=== PATIENT | female | born 1965 | race Caucasian/White ===

== ENCOUNTER → 2016-11-09 11:30 | Outpatient (CLI) | payer OTHER ==
[2014-06-26 09:57] VITALS: BMI 28.2
[~2016-11-09 11:30] MED LIST: ACETAMINOPHEN500 M1 PO; BAYER CHEWABLE81 MG PO; BUTALB-APAP-CA1 EACH PO; FISH OIL 1,0001 CA1 PO; NORVASC10 MG PO; PROBIOTIC PO; SUPER B COMPLE150 MG PO; ZOFRAN ODT4 MG/UDTAB PO
== END | disposition home or self-care (01) ==
LOC: D.CT 11:30
DX: R10.84 Generalized abdominal pain (principal)

== ENCOUNTER → 2017-05-08 08:58 | Outpatient (CLI) | payer OTHER | END | disposition home or self-care (01) | LOC: D.US 08:58 | DX: K76.0 Fatty (change of) liver, not elsewhere classified (principal) ==

== ENCOUNTER → 2017-10-23 08:41 | Outpatient (CLI) | payer OTHER ==
[2014-06-26 09:57] VITALS: BMI 28.2
[2017-10-23 10:38] LABS: ALBUMIN 3.9 g/dL (3.4-5.0); BILIRUBIN - DIRECT 0.04 mg/dL (0.00-0.30); BILIRUBIN - INDIRECT 0.33 mg/dL (0.00-1.00); BILIRUBIN - TOTAL 0.37 mg/dL (0.2-1.3); PROTEIN - SERUM 7.5 g/dL (6.4-8.2)
== END | disposition home or self-care (01) ==
LOC: D.US 08:41
PROVIDERS: Internal Medicine Gastroenterology
DX: K76.0 Fatty (change of) liver, not elsewhere classified (principal)

== ENCOUNTER → 2018-05-01 08:45 | Outpatient (CLI) | payer OTHER ==
[2014-06-26 09:57] VITALS: BMI 28.2
[2018-05-01 09:44] LABS: ALBUMIN 3.6 g/dL (3.4-5.0); BILIRUBIN - DIRECT 0.07 mg/dL (0.00-0.30); BILIRUBIN - INDIRECT 0.23 mg/dL (0.00-1.00); BILIRUBIN - TOTAL 0.3 mg/dL (0.2-1.3); PROTEIN - SERUM 6.8 g/dL (6.4-8.2)
== END | disposition home or self-care (01) ==
LOC: D.US 04-25 09:00
PROVIDERS: Internal Medicine Gastroenterology
DX: K76.0 Fatty (change of) liver, not elsewhere classified (principal)

== ENCOUNTER → 2018-11-02 07:25 | Outpatient (CLI) | payer OTHER ==
[2014-06-26 09:57] VITALS: BMI 28.2
[2018-11-02 08:28] LABS: BILIRUBIN - DIRECT 0.09 mg/dL (0.00-0.30); BILIRUBIN - INDIRECT 0.28 mg/dL (0.00-1.00); BILIRUBIN - TOTAL 0.37 mg/dL (0.2-1.3); PROTEIN - SERUM 7.3 g/dL (6.4-8.2)
== END | disposition home or self-care (01) ==
LOC: D.US 10-31 09:00
PROVIDERS: ATTEND Internal Medicine Gastroenterology
DX: K76.0 Fatty (change of) liver, not elsewhere classified (principal)

== ENCOUNTER 2018-12-09 12:14 | Emergency (ER) | payer OTHER ==
[~2018-12-09] VITALS: Ht 162.6 cm; Wt 79.1 kg
[2018-12-09 12:19] VITALS: Ht 162.6 cm; Wt 79.1 kg
[2018-12-09] MEDS ORDERED: PROMETRIUM100 MG PO (12:22)
[2018-12-09] MEDS ORDERED: CLIMARA 0.0.05 MG/PA TRANSDERM (12:22)
[2018-12-09] MEDS ORDERED: PRINIVIL10 MG PO (12:22)
[2018-12-09] MEDS ORDERED: CATAPRES0.1 MG PO (12:23)
[2018-12-09 12:38] LABS: BASOPHILS 0.5 % (0-2); EOSINOPHILS 1.7 % (0-7); HEMATOCRIT 41.8 % (36.0-48.0); HEMOGLOBIN 14.5 g/dL (12-16); IMMATURE GRANULOCYTES 0.3 % (0-5); LYMPHOCYTES 38.1 % (15-50); MCH 30.9 pg (26.0-34.0); MCHC 34.7 g/dL (31.0-37.0); MCV 88.9 fL (80.0-100.0); MEAN PLATELET VOLUME 10.1 fL (7.4-10.4); MONOCYTES 6.3 % (2-11); NEUTROPHILS 53.1 % (40-80); RDW 12.7 % (11.5-14.5)
[2018-12-09 12:43] LABS: PLATELET COUNT 179 10x3/uL (130-400)
[2018-12-09 12:51] LABS: INR 1.02 (0.85-1.17); PROTIME 12.9 SECONDS (11.6-15.0)
[2018-12-09 12:52] LABS: APTT 27.9 SECONDS (22.8-39.4)
[2018-12-09 12:58] LABS: ALBUMIN 3.8 g/dL (3.4-5.0); ALKALINE PHOSPHATASE 54 U/L (46-116); ALT (SGPT) 24 U/L (10-68); BILIRUBIN - TOTAL 0.44 mg/dL (0.2-1.3); CALC OSMOLALITY 276 mosm/kg (275-300); CALCIUM 9.7 mg/dL (8.5-10.1); CARBON DIOXIDE 25.9 mmol/L (21.0-32.0); CHLORIDE - SERUM 105 mmol/L (98-107); CREATININE - SERUM 0.7 mg/dL (0.6-1.3); GLUCOSE 91 mg/dL (74-106); POTASSIUM - SERUM 3.9 mmol/L (3.5-5.1); PROTEIN - SERUM 7.2 g/dL (6.4-8.2); SODIUM 139 mmol/L (136-145); UREA NITROGEN 10 mg/dL (7-18); eGFR NON AFRICAN AMERICAN > 90 mL/min (90-120)
[2018-12-09 13:11] LABS: CKMB 0.8 U/L (0.0-3.6); CREATINE KINASE 99 UL (21-215); MAGNESIUM - SERUM 2.1 mg/dL (1.8-2.4)
[2018-12-09 13:12] LABS: TROPONIN-I < 0.017 ng/mL (0.000-0.060)
[2018-12-09 16:07] VITALS: BP 126/64
== END 2018-12-09 16:08 | disposition home or self-care (01) ==
LOC: D.ER 12:14
PROVIDERS: Family Medicine
DX: R07.9 Chest pain, unspecified (principal); I10 Essential (primary) hypertension

== ENCOUNTER 2019-04-10 20:25 | Emergency (ER) | payer OTHER ==
[~2019-04-10] VITALS: Ht 162.6 cm; Wt 70.9 kg
[~2019-04-10 20:25] MED LIST changes: +CATAPRES0.1 MG PO; +CLIMARA 0.0.05 MG/PA TRANSDERM; +PRINIVIL10 MG PO; +PROMETRIUM100 MG PO
[2019-04-10 20:39] VITALS: Ht 162.6 cm; Wt 70.9 kg
[2019-04-10 21:20] LABS: APPEARANCE CLEAR (CLEAR); BILIRUBIN NEGATIVE (NEGATIVE); COLOR YELLOW (YELLOW); GLUCOSE NEGATIVE (NEGATIVE); KETONE NEGATIVE (NEGATIVE); NITRITE NEGATIVE (NEGATIVE); PROTEIN NEGATIVE (NEGATIVE); UROBILINOGEN NORMAL (NORMAL)
[2019-04-10 21:21] LABS: BACTERIA FEW /hpf (NONE SEEN); RED CELLS - URINE OCC /hpf (0-5); WHITE CELLS - URINE OCC /hpf (0-5)
[2019-04-10 21:49] LABS: BASOPHILS 0.2 % (0-2); EOSINOPHILS 1.5 % (0-7); HEMATOCRIT 41.5 % (36.0-48.0); HEMOGLOBIN 14.4 g/dL (12-16); IMMATURE GRANULOCYTES 0.1 % (0-5); LYMPHOCYTES 18.3 % (15-50); MCHC 34.7 g/dL (31.0-37.0); MCV 89.4 fL (80.0-100.0); MEAN PLATELET VOLUME 10.9 fL (7.4-10.4); MONOCYTES 6.4 % (2-11); NEUTROPHILS 73.5 % (40-80); PLATELET COUNT 182 10x3/uL (130-400); RBC 4.64 10x6/uL (4.00-5.40); RDW 12.6 % (11.5-14.5); WBC 9.2 10x3/uL (4.8-10.8)
[2019-04-10 21:54] LABS: APTT 27.4 SECONDS (22.8-39.4); PROTIME 12.7 SECONDS (11.6-15.0)
[2019-04-10 22:00] LABS: ALBUMIN 3.8 g/dL (3.4-5.0); ANION GAP 9.6 mmol/L (8-16); BILIRUBIN - TOTAL 0.41 mg/dL (0.2-1.3); CALCIUM 10.4 mg/dL (8.5-10.1); CARBON DIOXIDE 30.1 mmol/L (21.0-32.0); CREATININE - SERUM 1.1 mg/dL (0.6-1.3); POTASSIUM - SERUM 3.7 mmol/L (3.5-5.1)
[2019-04-10] MEDS ORDERED: HYDROCODONE-A1 UDTA2 PO (22:06)
[2019-04-10 22:32] VITALS: BP 144/71
== END 2019-04-10 22:32 | disposition home or self-care (01) ==
LOC: D.ER 20:25
PROVIDERS: Emergency Medicine
DX: S09.90XA Unspecified injury of head, initial encounter (principal); V86.59XA Driver of other special all-terrain or other off-road motor vehicle injured in nontraffic accident, initial encounter; Y93.89 Activity, other specified; Y92.89 Other specified places as the place of occurrence of the external cause; S69.91XA Unspecified injury of right wrist, hand and finger(s), initial encounter

== ENCOUNTER 2019-04-17 19:46 | Emergency (ER) | payer OTHER ==
[~2019-04-17] VITALS: Ht 162.6 cm; Wt 70.0 kg
[~2019-04-17 19:46] MED LIST changes: +HYDROCODONE-A1 UDTA2 PO
[2019-04-17 20:08] VITALS: Ht 162.6 cm; Wt 70.0 kg
[2019-04-17] MEDS ORDERED: KEFLEX500 MG PO (21:01)
[2019-04-17 21:18] VITALS: BP 150/84
== END 2019-04-17 21:21 | disposition home or self-care (01) ==
LOC: D.ER 19:46
DX: S01.511A Laceration without foreign body of lip, initial encounter (principal); W26.8XXA Contact with other sharp object(s), not elsewhere classified, initial encounter; Y93.89 Activity, other specified; Y92.89 Other specified places as the place of occurrence of the external cause

== ENCOUNTER → 2019-05-13 08:34 | Outpatient (CLI) | payer OTHER ==
[2019-04-17 20:08] VITALS: BMI 26.5
[~2019-05-13 08:34] MED LIST changes: +KEFLEX500 MG PO
[2019-05-13 10:14] LABS: ALBUMIN 4.1 g/dL (3.4-5.0); BILIRUBIN - DIRECT 0.13 mg/dL (0.00-0.30); BILIRUBIN - INDIRECT 0.45 mg/dL (0.00-1.00); BILIRUBIN - TOTAL 0.58 mg/dL (0.2-1.3); PROTEIN - SERUM 7.1 g/dL (6.4-8.2)
== END | disposition home or self-care (01) ==
LOC: D.US 08:30
PROVIDERS: ATTEND Internal Medicine Gastroenterology
DX: K76.0 Fatty (change of) liver, not elsewhere classified (principal)

== ENCOUNTER 2020-10-17 18:00 | Observation (INO) | payer OTHER ==
[~2020-10-17] VITALS: Ht 162.6 cm; Wt 65.9 kg
--- NOTE | ~2020-10-17 | ST ---
PATIENT:DIMITRIS GRANADOS MEDICAL RECORD: [id number] SEX: F LOCATION:.MS [id number] ORDER #: ADMISSION DATE: 10/17/20 AGE OF PATIENT: 55 REFERRING PHYSICIAN: INTERPRETING PHYSICIAN: SHONNA HOBSON MD DATE OF SERVICE: 10/18/2020 LEXISCAN DIRECTED NUCLEAR STRESS TEST PROCEDURE IN DETAIL: The patient was brought into the nuclear catheterization lab. The patient was placed in supine position on the nuclear camera. The patient had Lexiscan injected via the normal protocol. The patient had 11.8 mCi of sestamibi injected at rest. The patient had 30.3 mCi of sestamibi injected at stress. The patient tolerated the procedure without complication. The patient had no acute ST or T-wave changes. FINDINGS: The patient had no evidence of ischemia or infarction. The patient had a normal nuclear stress test. There were no significant artifacts. The ejection fraction is 54% and normal. IMPRESSION: 1. Normal nuclear stress test. 2. Normal left ventricular systolic function. RECOMMENDATIONS: Continue current medical management and evaluation. TRANSINT:[id number] Voice Confirmation ID: [id number] DOCUMENT ID: [id number] SHONNA HOBSON MD CC: [id number] DICTATION DATE: 10/18/20 1213 FINAL INSPECTOR: 10/18/20 193 ADM IN [facility] [address] [place] [address]
--- NOTE | ~2020-10-17 | EC ---
PATIENT:DIMITRIS GRANADOS DATE OF SERVICE: 10/17/20 SEX: F MEDICAL RECORD: [id number] DATE OF : 67 LOCATION:D.[facility] AGE OF PATIENT: 55 ADMISSION DATE: 10/17/20 REFERRING PHYSICIAN: INTERPRETING PHYSICIAN: SHONNA HOBSON MD ECHOCARDIOGRAM REPORT ECHO CHARGES 4 ECHO COMPLETE Date: 10/18/20 CLINICAL DIAGNOSIS: SYNCOPE, FAMILY HX OF CAD ECHOCARDIOGRAPHIC MEASUREMENTS (adult normal given) AC root (d.<3.7cm) 3.0 cm LV Septum d (<1.2 cm> 0.9 cm Valve Excursion 1.6 cm LV Septum (systole) 1.0 cm Left Atria (s.<4.0cm> 3.0 cm LVPW d(<1.2cm) 0.9 cm RV (d.<2.3cm) 2.6 cm LVPW (sytole) 1.1 cm LV diastole(<5.6CM) 5.7 cm MV E-F(>70mm/sec) cm LV systole 4.3 cm LVOT Diameter 1.5 cm MV exc.(>10mm) 1.6 cm Est.ejection fraction (50-75%) % DOPPLER: LVIT cm/sec A 79 cm/sec E 80 cm/sec LA cm/sec RVSP 21 mmHg LVOT 103 cm/sec AOP1/2T m/s Asc. Ao 129 cm/sec RVOT 53 cm/sec RA cm/sec PA 67 cm/sec AV Gradient Peak 6.7 mmHg AV Mean 3.7 mmHg AV Area 1.4 cm MV Gradient Peak 4.0 mmHg MV Mean 2.6 mmHg MV Area cm COMMENTS: Contact Lens Assistant: Tomeka BARBOSA Alterations Tailor: Jason Hobson TAPE# Pericardial Effusion N DATE OF SERVICE: 10/18/2020 PROCEDURE: Transthoracic echocardiogram. Left ventricle shows mild to moderate left ventricular hypertrophy, concentric in nature. The overall ejection fraction is normal at 55%. Inflow characteristics show diastolic dysfunction. Right ventricle appears to be normal size, shape, and function. ECHOCARDIOGRAM REPORT [id number] DIMITRIS GRANADOS Left atrium is normal size, shape, structure, and function. The right atrium appears to be of normal. Interatrial septum appears to be normal. The aortic valve is normal. Mitral valve is normal. Tricuspid valve is normal with normal right ventricular systolic pressures. The pulmonic valve is normal. There is no pleural effusion or pericardial effusion. IMPRESSION: The patient has mild concentric left ventricular hypertrophy, otherwise normal echocardiogram. TRANSINT:[id number] Voice Confirmation ID: [id number] DOCUMENT ID: [id number] SHONNA HOBSON MD CC: [id number] DICTATION DATE: 10/18/20 1516 JEWELER APPRENTICE: 10/18/20 194 ADM IN [facility] [address] [place] [address]
[2020-10-17 18:29] LABS: BASOPHILS 0.5 % (0-2); EOSINOPHILS 1.7 % (0-7); HEMATOCRIT 42.9 % (36.0-48.0); HEMOGLOBIN 14.5 g/dL (12-16); IMMATURE GRANULOCYTES 0.2 % (0-5); LYMPHOCYTE ABS# 2.24 10x3/uL (1.18-3.74); LYMPHOCYTES 35.1 % (15-50); MCH 31.3 pg (26.0-34.0); MCHC 33.8 g/dL (31.0-37.0); MCV 92.5 fL (80.0-100.0); MEAN PLATELET VOLUME 9.9 fL (7.4-10.4); MONOCYTES 6.6 % (2-11); NEUTROPHIL ABS# 3.58 10x3/uL (1.56-6.13); NEUTROPHILS 55.9 % (40-80); PLATELET COUNT 190 10x3/uL (130-400); RBC 4.64 10x6/uL (4.00-5.40); WBC 6.4 10x3/uL (4.8-10.8)
[2020-10-17 18:36] LABS: APTT 28.6 SECONDS (22.8-39.4); INR 1.06 (0.85-1.17); PROTIME 12.8 SECONDS (11.6-15.0)
[2020-10-17 18:38] LABS: CALC OSMOLALITY 277 mosm/kg (275-300); CALCIUM 9.7 mg/dL (8.5-10.1); CARBON DIOXIDE 30.7 mmol/L (21.0-32.0); CHLORIDE - SERUM 104 mmol/L (98-107); CREATININE - SERUM 0.6 mg/dL (0.6-1.3); GLUCOSE 78 mg/dL (74-106); POTASSIUM - SERUM 3.3 mmol/L (3.5-5.1); SODIUM 138 mmol/L (136-145); UREA NITROGEN 22 mg/dL (7-18); eGFR NON AFRICAN AMERICAN > 90 mL/min (90-120)
[2020-10-17 18:52] LABS: ALKALINE PHOSPHATASE 71 U/L (30-120); ALT (SGPT) 27 U/L (10-68); BILIRUBIN - TOTAL 0.36 mg/dL (0.2-1.3); CKMB 0.6 U/L (0.0-3.6); CREATINE KINASE 75 UL (21-215); MAGNESIUM - SERUM 2.1 mg/dL (1.8-2.4); TROPONIN-I < 0.017 ng/mL (0.000-0.060)
[2020-10-17 19:02] VITALS: BP 171/78
[2020-10-17 19:17] LABS: NITRITE NEGATIVE (NEGATIVE)
[2020-10-17 19:18] LABS: BILIRUBIN NEGATIVE (NEGATIVE); KETONE NEGATIVE (NEGATIVE); UROBILINOGEN NORMAL mg/dL (< 2)
[2020-10-17 19:23] LABS: UDS - AMPHET NEGATIVE QUAL (NEGATIVE); UDS - BARB NEGATIVE QUAL (NEGATIVE); UDS - BENZO NEGATIVE QUAL (NEGATIVE); UDS - COCAINE NEGATIVE QUAL (NEGATIVE); UDS - OPIATE NEGATIVE QUAL (NEGATIVE); UDS - PCP NEGATIVE QUAL (NEGATIVE); UDS - THC NEGATIVE QUAL (NEGATIVE)
[2020-10-17 21:07] LABS: CKMB 0.6 U/L (0.0-3.6); CREATINE KINASE 69 UL (21-215); TROPONIN-I < 0.017 ng/mL (0.000-0.060)
[2020-10-17 22:24] VITALS: BP 128/57
[2020-10-18 02:14] LABS: BASOPHILS 0.2 % (0-2); EOSINOPHILS 2.2 % (0-7); HEMATOCRIT 40.5 % (36.0-48.0); HEMOGLOBIN 13.7 g/dL (12-16); IMMATURE GRANULOCYTES 0.2 % (0-5); LYMPHOCYTE ABS# 2.24 10x3/uL (1.18-3.74); LYMPHOCYTES 40.4 % (15-50); MCH 31.3 pg (26.0-34.0); MCHC 33.8 g/dL (31.0-37.0); MCV 92.5 fL (80.0-100.0); MEAN PLATELET VOLUME 9.9 fL (7.4-10.4); MONOCYTES 6.7 % (2-11); NEUTROPHIL ABS# 2.79 10x3/uL (1.56-6.13); NEUTROPHILS 50.3 % (40-80); PLATELET COUNT 173 10x3/uL (130-400); RBC 4.38 10x6/uL (4.00-5.40); WBC 5.5 10x3/uL (4.8-10.8)
[2020-10-18 02:38] LABS: ALBUMIN 3.5 g/dL (3.4-5.0); ALKALINE PHOSPHATASE 61 U/L (30-120); ALT (SGPT) 24 U/L (10-68); CALC OSMOLALITY 277 mosm/kg (275-300); CALCIUM 9.4 mg/dL (8.5-10.1); CARBON DIOXIDE 30.5 mmol/L (21.0-32.0); CHLORIDE - SERUM 106 mmol/L (98-107); CKMB 0.4 U/L (0.0-3.6); CREATINE KINASE 60 UL (21-215); CREATININE - SERUM 0.7 mg/dL (0.6-1.3); GLUCOSE 93 mg/dL (74-106); MAGNESIUM - SERUM 2.1 mg/dL (1.8-2.4); POTASSIUM - SERUM 3.6 mmol/L (3.5-5.1); PROTEIN - SERUM 6.2 g/dL (6.4-8.2); SODIUM 138 mmol/L (136-145); TROPONIN-I < 0.017 ng/mL (0.000-0.060); UREA NITROGEN 19 mg/dL (7-18); eGFR NON AFRICAN AMERICAN > 90 mL/min (90-120)
--- NOTE | 2020-10-18 04:51 | NUR ---
PT ARRIVED ON UNIT VIA WHEELCHAIR, ESCORTED BY ER NURSE. POSITIONED IN BED FOR COMFORT. ORIENTED TO ROOM AND CALL LIGHT. NPO STATUS...PT AWARE AND SIGNAGE PLACED ON DOOR.
[2020-10-18 05:05] VITALS: BP 141/73; BMI 24.9
--- NOTE | 2020-10-18 06:16 | NUR ---
SECOND EKG PERFORMED AND SCANNED INTO RECORD.
--- NOTE | 2020-10-18 06:17 | NUR ---
ADMISSION ASSESSMENT, HISTORY AND CARE PLANS COMPLETE.
[2020-10-18 08:42] LABS: CKMB 0.2 U/L (0.0-3.6); CREATINE KINASE 55 UL (21-215); TROPONIN-I < 0.017 ng/mL (0.000-0.060)
[2020-10-18 09:04] VITALS: BP 148/73
--- NOTE | 2020-10-18 10:26 | NUR ---
IN BED. DENIES NEEDS AT THIS TIME. BED LOW POSITION, CALL LIGHT IN REACH. FREE FROM SIGNS OF DISTRESS. WILL CONTINUE TO MONITOR.
[2020-10-18 11:23] VITALS: Ht 162.6 cm; Wt 65.9 kg
--- NOTE | 2020-10-18 12:30 | NUR ---
EKG COMPLETE. SCANNED IN TO CHART. NORMAL SINUS READING.
[2020-10-18 12:43] VITALS: BP 153/79
[2020-10-18 16:35] VITALS: BP 134/79
--- NOTE | 2020-10-18 19:00 | NUR ---
BEDSIDE REPORT RECEIVED AND CARE OF PT ASSUMED. PT LYING ON RIGHT SIDE WITH EYES CLOSED. TELEMETRY IN PLACE AND READING SR AT THIS ASSESSMENT. WILL MONITOR FOR NEEDS.
[2020-10-18 20:00] VITALS: BP 139/70
[2020-10-19] VITALS: BP 141/73
[2020-10-19 04:00] VITALS: BP 135/59
[2020-10-19 07:27] LABS: BASOPHILS 0.2 % (0-2); EOSINOPHILS 2.5 % (0-7); HEMATOCRIT 43.5 % (36.0-48.0); HEMOGLOBIN 14.7 g/dL (12-16); IMMATURE GRANULOCYTES 0.2 % (0-5); LYMPHOCYTE ABS# 1.86 10x3/uL (1.18-3.74); LYMPHOCYTES 36.2 % (15-50); MCH 31.3 pg (26.0-34.0); MCHC 33.8 g/dL (31.0-37.0); MCV 92.6 fL (80.0-100.0); MEAN PLATELET VOLUME 10.2 fL (7.4-10.4); MONOCYTES 5.4 % (2-11); NEUTROPHIL ABS# 2.85 10x3/uL (1.56-6.13); NEUTROPHILS 55.5 % (40-80); PLATELET COUNT 177 10x3/uL (130-400); WBC 5.1 10x3/uL (4.8-10.8)
[2020-10-19 07:52] LABS: ALBUMIN 3.6 g/dL (3.4-5.0); ALKALINE PHOSPHATASE 65 U/L (30-120); ALT (SGPT) 27 U/L (10-68); BILIRUBIN - TOTAL 0.53 mg/dL (0.2-1.3); CALC OSMOLALITY 275 mosm/kg (275-300); CALCIUM 9.6 mg/dL (8.5-10.1); CARBON DIOXIDE 26.8 mmol/L (21.0-32.0); CHLORIDE - SERUM 106 mmol/L (98-107); CREATININE - SERUM 0.6 mg/dL (0.6-1.3); GLUCOSE 91 mg/dL (74-106); MAGNESIUM - SERUM 2.1 mg/dL (1.8-2.4); POTASSIUM - SERUM 3.7 mmol/L (3.5-5.1); PROTEIN - SERUM 6.6 g/dL (6.4-8.2); SODIUM 138 mmol/L (136-145); UREA NITROGEN 12 mg/dL (7-18); eGFR NON AFRICAN AMERICAN > 90 mL/min (90-120)
[2020-10-19 08:00] VITALS: BP 140/95
--- NOTE | 2020-10-19 08:15 | NUR ---
PATIENT IN BED WITH IV INTACT. NO COMPLAINTS OR SIGNS OF DISTRESS. CALL LIGHT WITHIN REACH.
[2020-10-19 09:00] VITALS: BP 149/81; BP 153/92; BP 162/80
--- NOTE | 2020-10-19 09:15 | NUR ---
SPOKE WITH LATRICIA ABOUT PATIENT BEING DIZZY AGAIN. TELEMETRY SR 76. DID ORTHOSTATIC BPS ALREADY AND WERE NORMAL. NEW ORDERS RECIEVED AND CARRIED OUT. CALL LIGHT WITHIN REACH.
--- NOTE | 2020-10-19 11:00 | NUR ---
PATIENT STATED SHE IS FEELING BETTER. NO MORE DIZZINESS. EXPLAINED LATRICIA ORDERED US AND MRI. VERBALIZED UNDERSTANDING. CALL LIGHT WITHIN REACH.
[2020-10-19 12:00] VITALS: BP 126/80
[2020-10-19 15:00] VITALS: BP 157/82
[2020-10-19] MEDS ORDERED: CLONIDINE HCL0.1 MG PO (16:03)
--- NOTE | 2020-10-19 18:08 | NUR ---
WAITING FROM CALL BACK FROM CARDIOLOGY FOR DISCHARGES
--- NOTE | 2020-10-19 19:53 | NUR ---
DISCHARGE INSTRUCTIONS GIVEN TO PATIENT. IV REMOVED WITH CATH TIP INTACT. WAITING FOR TRANSPORTATION. TELE TAKEN BACK TO ICU.
== END 2020-10-19 21:30 | disposition home or self-care (01) ==
LOC: D.ER 18:00 → OBSVTIME 20:26 → D.EDHOLD 20:26 → D.MS 20:26
PROVIDERS: Family Medicine; ADMIT Family Medicine; ATTEND Family Medicine
DX: R55 Syncope and collapse (principal); E87.6 Hypokalemia; R07.9 Chest pain, unspecified